=== PATIENT | female | born 1965 | race African-American/Black ===

== ENCOUNTER 2017-02-06 19:31 | Emergency (ER) | payer SELFPAY ==
--- NOTE | 2017-02-06 21:26 | C.PDOC ---
History Of Present Illness 51 year old female presents to the ER after she tripped, fell and landed on her right elbow and hurt her right 5th finger and right elbow. Denies head injury, LOC, weakness, or numbness. Time Seen by Provider: 02/06/17 20:30 Chief Complaint (Nursing): Upper Extremity Problem/Injury History Per: Patient History/Exam Limitations: no limitations Onset/Duration Of Symptoms: Hrs Current Symptoms Are (Timing): Still Present Exacerbating Factor(s): Strenuous Use Of Affected Area Recent travel outside of the [place]: No Past Medical History Reviewed: Historical Data, Nursing Documentation, Vital Signs Vital Signs: Last Vital Signs Temp 97.7 F 02/06/17 19:53 Pulse 70 02/06/17 19:53 Resp 20 02/06/17 19:53 BP 117/79 02/06/17 19:53 Pulse Ox 99 02/06/17 21:35 - Medical History PMH: No Chronic Diseases Surgical History: No Surg Hx Family History: States: Unknown Family Hx - Social History Hx Alcohol Use: No Hx Substance Use: No - Immunization History Hx Tetanus Toxoid Vaccination: No Hx Influenza Vaccination: No Hx Pneumococcal Vaccination: No Review Of Systems Musculoskeletal: Positive for: Arm Pain Neurological: Negative for: Weakness, Numbness, Other (LOC) Physical Exam - Physical Exam Appears: Non-toxic, No Acute Distress Skin: Normal Color, Warm, Dry Head: Atraumatic, Normacephalic Extremity: Tenderness (right epicondylar area, right 5th finger over PIP), Capillary Refill (<2 seconds), No Deformity, Swelling (minimal to right epicondylar area) Pulses: Left Radial: Normal, Right Radial: Normal Neurological/Psych: Oriented x3, Normal Speech, Normal Cognition, Normal Motor, Normal Sensation ED Course And Treatment O2 Sat by Pulse Oximetry: 99 (Room air) Pulse Ox Interpretation: Normal - Other Rad Right elbow x-ray X-Ray: Interpreted by Me, Viewed By Me Interpretation: Hairline fracture of the distal humerus Right hand x-ray X-Ray: Interpreted by Me, Viewed By Me Interpretation: No acute fractures or dislocations. Progress Note: Tylenol given for pain; patient placed in arm sling and instructed to follow up with ortho. Disposition Counseled Patient/Family Regarding: Diagnosis, Need For Followup, Rx Given - Disposition Referrals: Orville Aviles III, MD [Staff Provider] - Disposition: HOME/ ROUTINE Disposition Time: 21:23 Condition: STABLE Additional Instructions: Please follow up with PMD Take motrin for pain Return to ER if worse Prescriptions: Ibuprofen [Motrin] 600 mg PO Q6H #20 tab Instructions: Elbow Fracture in Adults (ED), Finger Sprain (ED) Forms: [employer] (Eritrean) - Clinical Impression Clinical Impression: Elbow fracture, right, Finger sprain - Scribe Statement The provider has reviewed the documentation as recorded by the Scribabdelrahman Love All medical record entries made by the Radhaibabdelrahman were at my direction and personally dictated by me. I have reviewed the chart and agree that the record accurately reflects my personal performance of the history, physical exam, medical decision making, and the department course for this patient. I have also personally directed, reviewed, and agree with the discharge instructions and disposition.
[2017-02-06 21:53] VITALS: BP 116/76; PULSE 59; RESP 18; TEMP 98.3
[2017-02-07 01:40] VITALS: O2SAT 99
--- NOTE | 2017-02-07 08:24 | RAD ---
PROCEDURE: Right Hand Radiographs. HISTORY: pain s/p fall COMPARISON: None. FINDINGS: BONES: Mild generalized osteopenia. No fracture. No erosions noted JOINTS: First metacarpal phalangeal joint mild arthrosis. SOFT TISSUES: Normal. OTHER FINDINGS: None. IMPRESSION: First metacarpal phalangeal joint mild arthrosis. Mild osteopenia No fracture or dislocation appreciated.
--- NOTE | 2017-02-07 08:41 | RAD ---
PROCEDURE: Radiographs of the right elbow. HISTORY: pain s/p fall COMPARISON: No prior. FINDINGS: BONES: Although no discrete fracture is identified. Given the anterior elbow joint effusion, an occult fracture needs to be considered. A definite radial head fracture is not identified on this study. This however is not excluded JOINTS: . No osteoarthritis. SOFT TISSUES: Normal. JOINT EFFUSION: Anterior elbow joint effusion present OTHER FINDINGS: None. IMPRESSION: Anterior elbow joint effusion present. An occult fracture needs to be considered -possibly radial head. However radiographic fracture site is not appreciated.
== END 2017-02-06 21:50 | disposition home or self-care (01) ==
LOC: C.ER 19:31
DX: S42.401A Unspecified fracture of lower end of right humerus, initial encounter for closed fracture (principal); S63.616A Unspecified sprain of right little finger, initial encounter; W01.0XXA Fall on same level from slipping, tripping and stumbling without subsequent striking against object, initial encounter; Y92.239 Unspecified place in hospital as the place of occurrence of the external cause